=== PATIENT | female | born 1960 | race Two or more races ===

== ENCOUNTER 2017-01-28 13:56 | Emergency (ER) | payer OTHER ==
[2017-01-28] MEDS ORDERED: DEXAMETHASONE SOD PHOS INJ 10 MG/1 ML VIAL IV ONE (14:39)
--- NOTE | 2017-01-28 14:39 | ER Document Report ---
ED Respiratory Problem - General Stated Complaint: DIFFICULTY BREATHING Mode of Arrival: Medic Information source: Patient - Via deaf interpreter, Relative TRAVEL OUTSIDE OF THE [place] IN LAST 30 DAYS: No - HPI Onset: Just prior to arrival Quality of pain: No pain Context: Smoker. denies: DVT, Factor V Leiden, Hx asthma, Hx CHF, Hx COPD, Malignancy, , Recent cardiac event, Recent foreign travel, Recent long distance trvl, Recent immobilization, Recent surgery Cough: Nonproductive Notes: The patient arrives via EMS with complaints of shortness of breath and chest tightness. Patient was cleaning with a product called "the AwesomeHighlighter". She states she has not used this cleaning product in the past. States that after cleaning the toilet using this product, she started to feel short of breath and felt tight in her chest. She denies any diaphoresis. She denies any known medical problems. She states she takes no medications and denies any allergies. She denies any recent trips or surgeries, no leg pain or swelling, no history of DVT or PE. Patient's denies any cardiac risk factors aside from age and smoking. She denies any drug use. She was given a breathing treatment by EMS on her way here, she said felt like that burned her chest more. She states that she is feeling significantly better now that she is away from the cleaning product. She denies any other complaints at this moment. The patient was given aspirin via EMS. - Related Data Allergies/Adverse Reactions: No Known Allergies Allergy (Verified 07/03/16 23:33) Past Medical History - Social History Smoking Status: Current Every Day Smoker Family History: Reviewed & Not Pertinent Neurological Medical History: Reports: Hx Migraine Review of Systems - Review of Systems -: Yes All other systems reviewed and negative Physical Exam - Vital signs Vitals: Pulse Ox 100 01/28/17 14:10 - General General appearance: Appears well, Alert - HEENT Head: Normocephalic Eyes: Normal Conjunctiva: Normal Mucous membranes: Normal Pharynx: Normal Neck: Normal - Respiratory Respiratory status: No respiratory distress Breath sounds: Normal. No: Decreased air movement, Rales, Rhonchi, Stridor, Wheezing - Cardiovascular Rhythm: Regular Heart sounds: Normal auscultation Murmur: No - Abdominal Inspection: Normal Distension: No distension Bowel sounds: Normal Tenderness: Nontender Organomegaly: No organomegaly - Back Back: Normal, Nontender - Extremities General upper extremity: Normal inspection, Nontender, Normal color, Normal ROM , Normal temperature General lower extremity: Normal inspection, Nontender, Normal color, Normal ROM , Normal temperature, Normal weight bearing. No: Edema - Neurological Neuro grossly intact: Yes Cognition: Normal Orientation: AAOx4 [place] Coma Scale Eye Opening: Spontaneous [place] Coma Scale Verbal: Oriented [place] Coma Scale Motor: Obeys Commands Eda Coma Scale Total: 15 Speech: Normal Motor strength normal: LUE, RUE, LLE, RLE Sensory: Normal - Psychological Associated symptoms: Normal affect, Normal mood - Skin Skin Temperature: Warm Skin Moisture: Dry Skin Color: Normal Course - Re-evaluation Re-evalutation: 01/28/17 17:03 Patient is nontoxic appearing with stable vitals. The patient is feeling significantly better at this time. She has no chest tightness. On repeat exam she has a few scattered wheezes noted. EKG is normal. Troponin is negative. Patient has no PE risk factors, d-dimer is negative, PE is very unlikely in this patient. Her only cardiac risk factors are smoking and age, she has a low risk heart score, and her symptoms are unlikely to be ACS related. Patient is most likely experiencing some bronchitis/irritation of the lungs secondary to the cleaning fumes. Patient will be discharged home with steroids and albuterol inhaler. Follow up with her doctor at the next available appointment for reevaluation, or sooner for increased pain, fever, difficulty breathing, or any further concerns. Patient is noted to have a leukocytosis of unknown source at this time. Her LFTs are mildly elevated, but the patient's LFTs are chronically elevated. She has no abdominal tenderness on exam. The patient's emergency department workup and current diagnosis were explained to the patient and or family. Follow-up instructions were provided. Medications if prescribed were discussed. Instructions for when to return to the emergency department including specific worrisome symptoms were discussed with the patient and/or family. - Vital Signs Vital signs: Temp Pulse Resp BP Pulse Ox 100 01/28/17 14:10 - Laboratory Result Diagrams: 01/28/17 15:10 01/28/17 15:10 Laboratory results interpreted by me: 01/28/17 01/28/17 15:10 15:10 WBC 17.5 H Seg Neutrophils % 87.5 H Lymphocytes % 10.4 L Monocytes % 1.6 L Absolute Neutrophils 15.3 H Sodium 146.8 H Chloride 109 H BUN 21 H Alkaline Phosphatase 142 H Creatine Kinase 150 H Total Protein 8.4 H - EKG Interpretation by Me EKG shows normal: Sinus rhythm, [place], Intervals, QRS Complexes, ST-T Waves Rate: Normal Discharge - Discharge Clinical Impression: Bronchitis due to fumes and vapors Chest pain Qualifiers: Chest pain type: unspecified Qualified Code(s): R07.9 - Chest pain, unspecified Condition: Stable Disposition: HOME, SELF-CARE Instructions: Bronchitis ([facility]) Additional Instructions: Take medications as prescribed. Drink plenty of fluids. Follow-up with your doctor at the next available appointment for recheck. Follow-up sooner for increased pain, fever, difficulty breathing, worsening chest pain, or any further concerns. Prescriptions: Albuterol Sulfate [Proair HFA Inhalation Aerosol 8.5 gm MDI] 2 puff IH Q4 PRN # 1 mdi PRN Reason: Prednisone 60 mg PO DAILY #15 tablet Print Language: Tajik
[2017-01-28 15:25] LABS: ABSOLUTE BASOPHILS # (AUTO) 0.1 10^3/uL (0.0-0.2); ABSOLUTE LYMPHOCYTES (AUTO) 1.8 10^3/uL (0.5-4.7); ABSOLUTE MONOCYTES (AUTO) 0.3 10^3/uL (0.1-1.4); ABSOLUTE NEUT (AUTO) 15.3 10^3/uL (1.7-8.2); BASOPHILS % (AUTO) 0.3 % (0-2); EOSINOPHILS % (AUTO) 0.2 % (0-6); HEMATOCRIT 42.6 % (36.0-47.0); HEMOGLOBIN 14.4 g/dL (12.0-15.5); HGB HCT DIFFERENCE 0.6; LYMPHOCYTES % (AUTO) 10.4 % (13-45); MEAN CORPUSCULAR HEMOGLOBIN 31.6 pg (27.0-33.4); MEAN CORPUSCULAR HGB CONC 33.8 g/dL (32.0-36.0); MEAN CORPUSCULAR VOLUME 94 fl (80-97); MONOCYTES % (AUTO) 1.6 % (3-13); RED BLOOD COUNT 4.55 10^6/uL (3.72-5.28); RED CELL DISTRIBUTION WIDTH 13.1 % (11.5-14.0); SEGMENTED NEUTROPHILS % (AUTO) 87.5 % (42-78); WHITE BLOOD COUNT 17.5 10^3/uL (4.0-10.5)
[2017-01-28 15:40] LABS: ALANINE AMINOTRANSFERASE 23 U/L (9-52); ALBUMIN 4.8 g/dL (3.5-5.0); ALKALINE PHOSPHATASE 142 U/L (38-126); ANION GAP 16 (5-19); ASPARTATE AMINO TRANSFERASE 32 U/L (14-36); BILIRUBIN,DIRECT 0.4 mg/dL (0.0-0.4); BILIRUBIN,TOTAL 0.6 mg/dL (0.2-1.3); BLOOD UREA NITROGEN 21 mg/dL (7-20); CALCIUM 9.8 mg/dL (8.4-10.2); CARBON DIOXIDE 22 mmol/L (22-30); CHLORIDE 109 mmol/L (98-107); CREATINE KINASE 150 U/L (30-135); CREATININE RESULT 0.71 mg/dL (0.52-1.25); GLUCOSE 89 mg/dL (75-110); SODIUM 146.8 mmol/L (137-145); TOTAL PROTEIN 8.4 g/dL (6.3-8.2)
[2017-01-28 16:12] LABS: TROPONIN I < 0.012 ng/mL
[2017-01-28 17:11] VITALS: BP 114/80
--- NOTE | 2017-01-29 22:05 | EKG REPORT ---
SEVERITY:- NORMAL ECG - SINUS RHYTHM : Confirmed by: Yvette Decker MD 29-Jan-2017 22:04:43
== END 2017-01-28 17:45 | disposition home or self-care (01) ==
LOC: ER 13:56
DX: J40 Bronchitis, not specified as acute or chronic (principal); R07.9 Chest pain, unspecified; R06.02 Shortness of breath; F17.200 Nicotine dependence, unspecified, uncomplicated
CPT/HCPCS: 93005; 99285; 96374; 36415; 82550; 85025; 80053; 84484; 85379; 83880; 71020; 93010; J1100